=== PATIENT | female | born 1995 | race Caucasian/White ===

== ENCOUNTER 2017-04-20 10:31 | Emergency (ER) | payer MEDICAID ==
[~2017-04-20] VITALS: Ht 167.6 cm; Wt 103.0 kg
[~2017-04-20 10:31] MED LIST: PREN1TAB49 PO
[2017-04-20 10:34] VITALS: Ht 167.6 cm; Wt 103.0 kg
[2017-04-20] MEDS ORDERED: IBUPROFEN 800 MG TAB PO ONE (11:30)
[2017-04-20] MEDS ORDERED: LIDOCAINE 1% (MDV) 20 ML INJ SC ONE (11:30)
--- NOTE | 2017-04-20 12:06 | ERD ---
ER Documentation Chief Complaint Chief Complaint possible foreign body in left ear today HPI This is a 21-year-old female who presents to the emergency department today complaining of a bug in her left ear. Patient states she was sleeping when she felt something her ear. States that she could not "feel something move". ROS All systems reviewed and are negative except as per history of present illness. Medications Home Meds Active Scripts Neomycin/Polymyxin/Hydrocort* (Cortisporin* Otic) 10 Ml Susp, 4 DROP LEFT EAR QID for 7 Days, EA Prov:NANDINI DEGROOT PA-C 04/20/17 Ibuprofen* (Motrin*) 600 Mg Tab, 600 MG PO Q6, #30 TAB Prov:NANDINI DEGROOT PA-C 04/20/17 Reported Medications Vits W-Ca,Fe,Fa(<1MG) () 1 Tab Tablet, 1 TAB PO DAILY, #30 07/28/12 Allergies Allergies: Coded Allergies: No Known Allergy (Unverified , 04/20/17) PMhx/Soc Medical and Surgical Hx: pt denies Medical Hx, pt denies Surgical Hx Hx Alcohol Use: No Hx Substance Use: No Hx Tobacco Use: No Physical Exam Vitals Vital Signs Date Time Temp Pulse Resp B/P Pulse Ox O2 Delivery O2 Flow Rate FiO2 04/20/17 10:34 98.0 75 18 141/88 98 Physical Exam Const: NAD Head: Atraumatic Eyes: Normal Conjunctiva ENT: TM normal. Left ear with evidence of foreign body and mild bleeding. Nose no drainage. Throat erythema no exudate Neck: Full range of motion..~ No meningismus. Resp: Clear to auscultation bilaterally Cardio: Regular rate and rhythm, no murmurs Abd: Soft, non tender, non distended. Normal bowel sounds Skin: No petechiae or rashes Back: No midline or flank tenderness Ext: No cyanosis, or edema Neur: Awake and alert Psych: Normal Mood and Affect Results 24 hrs Current Medications Medications (Trade) Dose Ordered Sig/Dmitri Route PRN Reason Start Time Stop Time Status Last Admin Dose Admin Lidocaine (Xylocaine 1% (Mdv) 20 ml) 20 ml ONCE ONCE SC 04/20/17 11:30 04/20/17 11:31 DC Ibuprofen (Motrin) 800 mg ONCE ONCE PO 04/20/17 11:30 04/20/17 11:31 DC 04/20/17 11:29 Procedures/MDM This is a 21-year-old female who presents the emergency department today complaining of foreign body in her left ear. Did use lidocaine to kill the bug that was in patients ear. Patient was not allowing me to use alligator forceps to remove foreign body and therefore I did attempt an ear lavage with the help of Dr. Gould was able to remove the bug. No evidence of TM perforation, otitis externa or otitis media, or mastoiditis Patient was given Motrin here in the emergency department. She is given a prescription for Motrin and Cortisporin for home given the small amount of blood. She was instructed to follow-up with an ENT specialist. Patient understood and agreed with the plan. At this time the patient is stable for discharge and outpatient management. Patient should follow up with their PCP in the next 1-2 days. They may return to the emergency department sooner for any persistent or worsening of symptoms. Patient understood and agreed with the plan. Departure Diagnosis: Primary Impression: Ear foreign body Encounter type: initial encounter Laterality: left Qualified Code: T16.2XXA - Foreign body of left ear, initial encounter Condition: Fair NANDINI DEGROOT PA-C Apr 20, 2017 12:06
[2017-04-20] MEDS ORDERED: IBUP-1542 PO (12:38)
[2017-04-20] MEDS ORDERED: NPH10OT LEFT EAR (12:39)
== END 2017-04-20 12:50 | disposition home or self-care (01) ==
LOC: FTE 10:31
DX: T16.2XXA Foreign body in left ear, initial encounter (principal); X58.XXXA Exposure to other specified factors, initial encounter; Y92.9 Unspecified place or not applicable
CPT/HCPCS: 69209; Z7502; Z7610